=== PATIENT | female | born 1960 | race Caucasian/White ===

== ENCOUNTER 2019-02-08 13:43 | Inpatient (IN) | payer OTHER ==
[~2019-02-08] VITALS: Ht 162.6 cm; Wt 59.0 kg
[2019-02-08 13:44] VITALS: BP 147/105
[2019-02-08 14:11] LABS: HEMATOCRIT 40.3 % (37.0-47.0); HEMOGLOBIN 13.3 gm/dL (12.0-15.0); MCH 28.7 pg (26.0-34.0); MCHC 33.1 g/dL (28.0-37.0); MCV 86.8 fL (80.0-100.0); PLATELET COUNT 457 thou/uL (150-400); RBC 4.64 mil/uL (4.20-5.00); WBC 24.4 thou/uL (4.0-11.0)
[2019-02-08 14:14] LABS: ANION GAP 11 mmol/L (7-16); BUN 25 mg/dL (7-18); CALCIUM 9.6 mg/dL (8.5-10.1); CHLORIDE 105 mmol/L (98-107); CO2 29 mmol/L (21-32); CREATININE 0.7 mg/dL (0.6-1.0); GLUCOSE 166 mg/dL (74-106); POTASSIUM 3.8 mmol/L (3.5-5.1); SODIUM 145 mmol/L (136-145)
[2019-02-08 14:16] LABS: BE(vivo) 1.2 mmol/L (-2 to +3); HCO3 25.5 mmol/L (22.0-26.0); PCO2 39.5 mmHg (35.0-45.0); PO2 242.7 mmHg (80.0-100.0); pH 7.428 (7.360-7.450); sO2 99.6 % (92.0-98.0)
[2019-02-08 14:24] LABS: MAGNESIUM 2.4 mg/dL (1.8-2.4); SGOT 53 U/L (15-37); SGPT 98 U/L (30-65); TOTAL BILIRUBIN 0.4 mg/dL (<0.1-1.0); TOTAL PROTEIN 8.3 g/dL (6.4-8.2); TROPONIN-I <0.06 ng/mL (<0.06)
[2019-02-08 14:30] LABS: APTT 27.3 Seconds (24.5-32.8); D-DIMER 3.11 ug/mLFEU (0.19-0.50); INR 1.1
[2019-02-08] MEDS ORDERED: ROBITUSSIN15 M1 PO (14:32)
[2019-02-08] MEDS ORDERED: SERTRALINE HCL25 M1 PO (14:33)
[2019-02-08] MEDS ORDERED: RILUTEK50 MG PO (14:33)
[2019-02-08] MEDS ORDERED: GLYCOPYRROLATE 11 MG PO (14:34)
[2019-02-08 14:42] LABS: ABSOLUTE NEUTROPHILS 19.5 thou/uL (1.4-8.2)
--- NOTE | 2019-02-08 17:19 | EKG ---
[address] [address] ELECTROCARDIOGRAM REPORT Name: HEATHER MARTINES Room #: 170-10 ADM IN M.R.#: [id number] ������������������ Admission: 02/08/19 ������������������ Attend Phys: Tony Weems Discharge: ������������������ Date of : 56 Report #: [id number] ����������������������������������������������������������������� [id number] THIS REPORT FOR: //name// [facility] ED Test Date: 2019-02-08 Test Time: 13:51:56 Pat Name: HEATHER MARTINES Department: Room: 170 Gender: F Mds Rn: YOSELYN : 1960 Requested By: Santiago Valentin Order Number: [id number] MD: Bernabe Estrada Measurements Intervals [place] Rate: 115 P: 83 WY: 126 QRS: 55 QRSD: 93 T: 59 QT: 315 QTc: 436 Interpretive Statements Sinus tachycardia Otherwise normal tracing No previous ECG available for comparison Electronically Signed On 02-08-2019 17:18:52 CDT by Bernabe Estrada [email or web address] ��������������������������������������������� <ELECTRONICALLY SIGNED> ���������������������������������������� By: Bernabe Estrada MD, [facility] ��������������������������������������������� 02/08/19 1718 1351 1351 Bernabe Estrada MD, FACC /EPI
[2019-02-08 17:22] VITALS: BP 133/92
[2019-02-08 18:36] VITALS: BP 146/98
[2019-02-08 19:50] VITALS: BP 129/91
[2019-02-09 03:25] VITALS: BP 132/98
--- NOTE | 2019-02-09 04:45 | NUR ---
ADMISSION CAME AT SHIFT CHANGE. NO REPRESENATIVES FOR PT WERE PRESENT. DURING ADMISSION ASSESSMENT NOTICE PT HAD BRIEF ON WHICH WAS REMOVED. FROY AREA HAS REDNESS DUE TO URINE. PLACED EXTERNAL CATH, CLEANED FROY AREA, AND APPLIED BARRIER CREAM. MOVED PT ON Q2 BASIS. Q6 ACCU CHECK. PT HAS BEEN NPO SINCE ARRIVING. FOLLOWING POC FOR IVF AND IVPB ANTIBIOTICS. PT HAS BEEN ON BIPAP SINCE ARRIVAL, CONTINUOS PULSE OX, AND HAS HAD 02 SATURATION IN HIGH 90'S. HOURLY ROUNDING.
[2019-02-09 05:35] LABS: HEMATOCRIT 35.4 % (37.0-47.0); MCHC 31.9 g/dL (28.0-37.0); MCV 87.9 fL (80.0-100.0); RBC 4.02 mil/uL (4.20-5.00); RDW 14.3 % (10.5-14.5); WBC 23.7 thou/uL (4.0-11.0)
[2019-02-09 05:38] LABS: HEMOGLOBIN 11.3 gm/dL (12.0-15.0)
[2019-02-09 07:32] LABS: HCO3 27.3 mmol/L (22.0-26.0); PCO2 40.8 mmHg (35.0-45.0); pH 7.443 (7.360-7.450); sO2 96.3 % (92.0-98.0)
[2019-02-09 07:34] LABS: URINE BILIRUBIN NEGATIVE (Negative); URINE BLOOD 2+ (Negative); URINE COLOR YELLOW; URINE GLUCOSE-RANDOM* NEGATIVE (Negative); URINE KETONES NEGATIVE (Negative); URINE LEUKOCYTES-REFLEX NEGATIVE (Negative); URINE PROTEIN (DIPSTICK) 2+ (Negative); URINE SPECIFIC GRAVITY >= 1.030 (1.005-1.035); URINE UROBILINOGEN 0.2 E.U./dl (0.2-1.0)
[2019-02-09 07:35] VITALS: BP 150/99
[2019-02-09 07:35] LABS: URINE NITRITE-REFLEX POSITIVE (Negative)
[2019-02-09 07:36] LABS: URINE CLARITY SL HAZY
[2019-02-09 07:52] LABS: BACTERIA-REFLEX 1-9 Few /HPF (None Seen); CASTS None Seen /LPF (None Seen); CRYSTALS None Seen /LPF (None Seen); SQUAMOUS 0-3 Few /LPF (0-3); URINE WBC-REFLEX 0-5 Rare /HPF (0-5)
[2019-02-09 07:53] LABS: URINE RBC 0-2 Rare /HPF (0-2)
[2019-02-09 11:07] VITALS: BP 138/98
--- NOTE | 2019-02-09 14:42 | NUR ---
DR. RIVERA IN TO SEE PT AND TALKED W/ RE PROGNOSIS AND PLAN OF CARE. STATED HE HAD TALKED W/ THE [place] [facility] YESTERDAY RE HOSPICE CARE AND THEY WERE TO GET THAT SET UP AND CALL HIM. PT WILL CONTINUE TO RECIEVE IV ANTIBIOTICS AND BIPAP FOR NOW. TYLENOL SUPP GIVEN FOR FEVER 101.5 AXILARY. PT TURNED Q2HRS.
--- NOTE | 2019-02-09 15:23 | NUR ---
Case opened to follow for support and dc planning. Pt admitted with aspiration pneumonia and enstage ALS. She is from home with her who provides 24hr care. She is on bipap at this time. The pt is awake but unable to participate in conversation. Classroom Assistant visited with the pt's spouse. Classroom Assistant placed a copy of the pt's living will and financial dpoa on the chart along with an original outside the hospital DNR form. The pt had completed these documents several years ago. The pt's spouse reports that until a few weeks ago she was able to say a couple of words and nod her head to communicate. Her swallow was very weak and she could no longer tolerate solid foods. He was trying to feed her liquid supplements. He states that they are suppose to have 4hrs of private duty care through the [facility] based [facility]. She has a RN cm at the [facility], Raquel Claros. He reports talking with Raquel about hospice services yesterday but has not heard back from her. Message left for Raquel at [phone] ext [phone] regarding dc planning efforts. The pt's spouse indicates that he has talked with pulmonary and they will try to treat with iV atb/bipap for a few days to help her respiratory status with the hope of getting back home with hospice care. The pt is a DNR. The pt is 100% service connected through the [facility] and they are paying for her hospital stay. They cover her dme and provide the daily private duty and SOLUTION [employer] visits every couple of months. She has medicare part A only as a secondary. The pt has a hospital bed, lift, cpap and bipap at home. She will need home o2 setup along with hospice care. Emotional support provided. Will follow.
--- NOTE | 2019-02-09 15:28 | NUR ---
ORDERS RECEIVED TO ASSESS SWALLOW FUNCTION; HOWEVER PER REPORT FROM RN, LUBRICATING SPECIALIST AND FAMILY CONSIDERING HOSPICE SERVICES FOR PATIENT D/T ACUTE MEDICAL DECLINE. DOCKING SAW OPERATOR TO SIGN OFF AT THIS TIME. RN ENCOURAGED TO RECONSULT ST SERVICES SHOULD EVALUATION BECOME APPROPRIATE.
[2019-02-09 15:31] VITALS: BP 140/91
[2019-02-09 19:55] VITALS: BP 144/81
[2019-02-10 04:45] VITALS: BP 151/98
[2019-02-10 05:03] LABS: HEMATOCRIT 33.9 % (37.0-47.0); HEMOGLOBIN 10.8 gm/dL (12.0-15.0); MCHC 31.9 g/dL (28.0-37.0); RBC 3.85 mil/uL (4.20-5.00); RDW 14.1 % (10.5-14.5); WBC 17.5 thou/uL (4.0-11.0)
[2019-02-10 05:16] LABS: CALCIUM 9.2 mg/dL (8.5-10.1); CREATININE 0.5 mg/dL (0.6-1.0); POTASSIUM 3.5 mmol/L (3.5-5.1)
--- NOTE | 2019-02-10 06:30 | NUR ---
PT HAS NOT BEEN HAVING URINE OUTPUT AND RETAINING ON THE AVERAGE OF 500ml MULTIPLE OCCASIONS THROUGHOUT THE SHIFT. CALLED IN[facility]O [facility] AND RECEIVED ORDER TO INSERT PECK DUE TO COMPLEXITY OF STRAIGHT CATH AND ANATOMY ISSUES. FOLLOWING POC WITH IVF AND IVPB ANTIBIOTICS. Q2 TURNS FOR PT AND ACCU CHECKS ON Q6 BASIS. PT IS NON-VERBAL BUT CAN TRACK WITH HER EYES. PT STILL ON BIPAP, BUT SHE IS GRUNTING LIKE SHE IS WANTING TO COME OFF THE BIPAP. HOURLY ROUNDING.
[2019-02-10 07:19] VITALS: BP 152/96
[2019-02-10 11:15] VITALS: BP 153/93
--- NOTE | 2019-02-10 12:42 | NUR ---
Noted with pt with low sharla score. Chart reviewed, progressive ALS, not able to take po at this time. DNR status. Requires BIPAP. Comfort measures has been recommended with hospice. Defer further nutrition eval at this time
[2019-02-10 15:15] VITALS: BP 138/82
--- NOTE | 2019-02-10 16:42 | NUR ---
RAF received call from RAF at [facility], [place] ([phone]) regarding pt's discharge plan. [facility], who states that pt and spouse are able to choose any hospice provider they would like. The [facility] will cover hospice with their choice of provider. Pt has med mgmt services through [employer] . [place] requests hospice provider choice and discharge orders/summary to be faxed to them when available. RAF, Oct ([phone]) will be taking case tomorrow. RAF spoke with pt's spouse via phone to provide update and discuss discharge plan. Pt's spouse would like for pt to discharge home with hospice services. Options discussed with pt's spouse, who requests referral to be sent to Hospice. RAF discussed plan for d/c home and potentially to Hospice House if needed. Pt's spouse is agreeable with plan. paraplanner to fax referral to Hospice. RAF notified chemistry lab instructor, who will contact pt's spouse to arrange info visit/eval tomorrow. RAF updated attending physician. RAF is following to assist as needed with discharge planning.
--- NOTE | 2019-02-10 16:51 | NUR ---
DISCHARGE PLANNING. PLAN IS FOR PATIENT TO DISCHARGE HOME WITH HOSPICE SERVICES. [facility] AND [facility]OVERING PATIENTS HOSPICE NEEDS WELL. REFERRAL FAXED TO HOSPICE. CALL PLACED TO HOSPICE INTAKE, SPOKE WITH TAYLOR. TAYLOR INFORMED OF PATIENTS DISCHARGE PLAN. STATES SHE WILL REVIEW REFERRAL AND CONTACT CM IN THE AM ONCE REVIEW IS COMPLETE. CM CONTACT INFORMATION PROVIDED TO TAYLOR. UNIT CM/SW AWARE. FOLLOWING TO ASSIST WITH PATIENTS DISCHARGE NEEDS.
--- NOTE | 2019-02-10 18:40 | NUR ---
PT HAD PECK PLACED LAST NIGHT FOR RETENSION AND IMMOBILTY...NO BM SINCE ADMISSION..
--- NOTE | 2019-02-10 18:43 | HC ---
[facility] [place] [address] [address] CONSULTATION Name: HEATHER MARTINES Room #: 352-P [facility] IN M.R.#: [id number] Admission: 02/08/19 ������������������ Attend Phys: Tony Weems Discharge: ������������������ Date of : 56 Report #: [id number] THIS REPORT FOR: //name// CC: FAM unknown Tony Weems DATE OF SERVICE: 02/08/2019 PRIMARY PHYSICIAN: Dr. Weems. REASON FOR REFERRAL: Acute respiratory failure. HISTORY OF PRESENT ILLNESS: The patient is a 58-year-old white female who was brought to the Emergency Room with respiratory distress. A pulmonary consultation was requested. The patient is nonverbal. Most of the history is obtained from the patient's along with the chart. The patient was diagnosed with ALS several years ago. She has been getting her care primarily at the [facility]. The patient's has been the primary caregiver. She has been doing fairly well until about a month ago. Her health started deteriorating. She was noticeably much more weaker. She used to take up to 2 hours to eat her meals about a month ago. It was taking up to 4 hours to eat her meals. The patient's noted the patient is being more flaccid, weak. For the past 3 days, she is noted to be more dyspneic. With worsening symptoms, he brought her to the Emergency Room. The patient had been living at home up until this point. Currently, the patient is on BiPAP. She is tolerating fairly well. PAST MEDICAL HISTORY: As mentioned above. It is notable for ALS with progressive muscle weakness, atrophy, contractures. PAST SURGICAL HISTORY: Unremarkable. ALLERGIES: WELLBUTRIN, reactions not specified. HOME MEDICATIONS: Robitussin, riluzole, sertraline, glycopyrrolate. FAMILY HISTORY: Noncontributory. SOCIAL HISTORY: No tobacco or alcohol use. [facility] [address] [place] [address] CONSULTATION Name: HEATHER MARTINES Room #: 352-P [facility] IN M.R.#: [id number] Admission: 02/08/19 ������������������ Attend Phys: Tony Weems Discharge: ������������������ Date of : 56 Report #: [id number] REVIEW OF SYSTEMS: Progressive weakness, debility over the last several years, markedly worse over the past month. The patient's has been primary caregiver at home. REVIEW OF SYSTEMS: Deferred as the patient is nonverbal. PHYSICAL EXAMINATION: GENERAL: She is awake, eyes open, tolerating BiPAP. VITAL SIGNS: Temperature is 100.5 degrees Fahrenheit, pulse is 94, respiratory rate is 24, blood pressure 130/98 mmHg, saturation 98%. HEENT: Normocephalic, atraumatic. NECK: Supple, without lymphadenopathy or thyromegaly. CHEST: Breath sounds are fair due to poor effort. No obvious rales or wheezes. CARDIOVASCULAR: Normal S1, S2. No murmurs or gallop. There is no JVD. There is no carotid bruit. Pulses are 2+/4+ bilaterally. ABDOMEN: Soft, nontender, no organomegaly or masses felt. GENITOURINARY: Deferred. RECTAL: Deferred. EXTREMITIES: There is no cyanosis, clubbing or edema. MUSCULOSKELETAL: Notable for marked muscle atrophy with contractures both upper and lower extremities. LABORATORY DATA: Chest x-ray shows mild left lower lobe infiltrates changes consistent with pulmonary fibrosis, right lower lobe infiltrates also noted. Influenza A and B swab is negative. Procalcitonin level is 0.16. Electrolytes are normal. WBC is 24,400, hemoglobin 13.3, platelets are normal. Arterial blood gas revealed pH 7.42, pCO2 of 39, pO2 of 242 and FiO2 100%. IMPRESSION: 1. Acute hypoxic respiratory failure in this 58-year-old white female with long history of amyotrophic lateral sclerosis. She is profoundly debilitated with muscle weakness with contractures. Chest x-ray suggests mild bibasilar infiltrates. Pneumonia is suggested. 2. Amyotrophic lateral sclerosis with progressive muscle weakness, contractures. 3. Elevated liver enzymes, may be related to sepsis. 4. Medical directive. According to the , the patient desires to be DNR. RECOMMENDATION: Agree with noninvasive ventilation, broad spectrum antibiotics, DVT and GI prophylaxis. If clinical condition deteriorates and the patient appears to be suffering, would strongly recommend comfort measures with hospice. Discussed in detail with the patient's . [address] [address] CONSULTATION Name: HEATHER MARTINES Room #: 352-P ADM IN M.R.#: [id number] Admission: 02/08/19 ������������������ Attend Phys: Tony Weems Discharge: ������������������ Date of : 56 Report #: [id number] Thank you for this consultation. ��������������������������������������������� <ELECTRONICALLY SIGNED> ���������������������������������������� By: Easton Noriega MD ��������������������������������������������� 02/10/19 1843 1641 [id number] Easton Noriega MD /nt
[2019-02-10 19:00] VITALS: BP 133/85
[2019-02-11 04:12] VITALS: BP 145/81
--- NOTE | 2019-02-11 04:38 | NUR ---
ASSUMED PT CARE AROUND 1900. NONVERBAL BUT IS ABLE TO MAINTAIN EYE CONTACT. ON BIPAP ALL SHIFT. TOLERATED WELL. ORAL CARE PROVIDED. Q2H TURN TO PREVENT SKIN BREAKDOWN. PT WAS SLIGHTLY RESTLESS DURING MIDDLE OF THE NIGHT, SO MORPHINE GIVEN FOR APPARENT PAIN. VSS. AFEBRILE. PECK TO DD. NOT PROGRESSING WELL TOWARD POC GOALS. WILL CONTINUE TO MONITOR FURTHER.
[2019-02-11 05:12] LABS: CALCIUM 8.6 mg/dL (8.5-10.1); CREATININE 0.4 mg/dL (0.6-1.0); POTASSIUM 3.3 mmol/L (3.5-5.1)
[2019-02-11 07:38] VITALS: BP 147/87
[2019-02-11 12:03] VITALS: BP 143/70
--- NOTE | 2019-02-11 17:18 | NUR ---
RAF reviewed chart and spoke with nursing and attending physician. mate relief arranged to meet with pt's spouse at 1100 this morning. Attending physician met with pt's spouse and it was decided that pt remain hospitalized on comfort care measures. Pt started on morphine gtt. RAF received call from RAF Jean at the [facility] ( [phone]). RAF returned call and left voice message for Miranda and provided update. RAF is available to assist should needs arise.
--- NOTE | 2019-02-11 17:28 | NUR ---
ASSUMED PATIENT CARE AT 0700, AWAKE. STARTED MORPH GTT AT 1215 5MG /H. ON COMFORT CARE. TOLERATED ON BIPAP 35% FIO2. PATIENT'S MOTHER AND SISTER CAME TO VISITOR. Q2H TURN AND ORAL CARE. NO DISDRESS NOTED. SLOWLY TOWARDS POC GOALS.
[2019-02-11 20:00] VITALS: BP 104/67
[2019-02-12 04:20] VITALS: BP 78/46
--- NOTE | 2019-02-12 05:24 | NUR ---
SLEPT MOST OF SHIFT. APPEARS TO BE COMFORTABLE. OPENS EYES TO VERBAL STIMULI BUT REMAINS NO VERBAL. TOLERATING BIPAP BUT RESPIRATIONS 10 WITHOUT BIPAP. TURNED EVERY 2 HOURS FOR COMFORT AND SKIN CARE. REMAINS ON COMFORT CARE. BLOOD PRESSURE IN 70'S THIS AM. MESSAGE LEFT FOR ABOUT STATUS. NO RETURN CALL AT THIS TIME. CONTINUE TO ASSES CLOESLY.
[2019-02-12 07:41] VITALS: BP 84/51
--- NOTE | 2019-02-12 13:43 | NUR ---
ASSUMED PATIENT CARE AT 0700. UNRESPENSIVE, ON MORPHINE GTT. AND OTHER FAMILY NUMBER AT BESIDE. RECEVIED DR CAMACHO ORDER THAT TAKE OFF BIPAP AND INCREASE MORPHINE RADE AT 1230. GIVEN 2MG ATIVAN IV AT 1340. WILL SCAN WHEN POWER BACK.
[2019-02-12 20:00] VITALS: BP 88/59
--- NOTE | 2019-02-13 05:23 | NUR ---
ASSUMED PATIENT CARE AT 1900. PATIENT IS UNRESPONSIVE AND ON A MORPHINE GTT. AND DBVWUY-OF-CZR AT BEDSIDE. ATIVAN GIVEN AND MORPHINE RATE INCREASED FOR AIR HUNGER. PATIENT IS COMFORTABLE.
[2019-02-13 11:31] VITALS: BP 77/48
--- NOTE | 2019-02-13 15:40 | NUR ---
PT RESTING IN BED OPENS EYES BUT IS NON-VERBAL. LUNGS COARSE. BS'S ALL 4 QUADS. PECK CATH TO D/D. DARK YELLOW URINE IN PECK BAG. HAS EDEMA PITTING 3+ TO ADRIEN LE'S. PT IS COMFORT CARE.HAS MORPHINE DRIP FOR PAIN. AT BEDSIDE.
[2019-02-13 16:52] VITALS: BP 104/63
[2019-02-13 22:21] VITALS: BP 104/63
--- NOTE | 2019-02-14 02:37 | NUR ---
PT IN COMFORT CARE AND TELE HAS BEEN REMOVED. MORPHINE DRIP INFUSING. PT IS UNRESPONSIVE VOCALY, BUT CAN TRACK WITH EYES. IS ROOMING IN. PECK IN PLACE FOR COMFORT MEASURES. BREATH SOUNDS ARE COURSE WITH FAINT GRUNTS BEING HEARD. BLLE AND BLUE. EXTREMETIES ELEVATED. HOURLY ROUNDING.
[2019-02-14 03:28] VITALS: BP 89/58
--- NOTE | 2019-02-14 12:14 | NUR ---
PT ON COMFORT CARE. PT UNRESPONSIVE. PT DOES NOT APPEAR TO BE IN ANY PAIN, MORPHINE GTT INFUSING PER ORDER. 2L ON 02 SATS 61%. AT BEDSIDE. WILL CONTINUE TO MONITOR.
== END 2019-02-14 12:23 | DRG 177 ==
LOC: ER 13:43 → EROBS 14:52 → 3W 14:52
PROVIDERS: Emergency Medicine; Internal Medicine Pulmonary Disease; Nurse Practitioner; Nurse Practitioner Family; ADMIT Hospitalist
PROC: 5A09357 Assistance with Respiratory Ventilation, Less than 24 Consecutive Hours, Continuous Positive Airway Pressure (ICD-10-PCS; principal; 2019-02-08)
PROC: 5A09357 Assistance with Respiratory Ventilation, Less than 24 Consecutive Hours, Continuous Positive Airway Pressure (ICD-10-PCS; 2019-02-09)
PROC: 5A09357 Assistance with Respiratory Ventilation, Less than 24 Consecutive Hours, Continuous Positive Airway Pressure (ICD-10-PCS; 2019-02-10)
PROC: 5A09357 Assistance with Respiratory Ventilation, Less than 24 Consecutive Hours, Continuous Positive Airway Pressure (ICD-10-PCS; 2019-02-11)
PROC: 5A09357 Assistance with Respiratory Ventilation, Less than 24 Consecutive Hours, Continuous Positive Airway Pressure (ICD-10-PCS; 2019-02-12)
DX: J69.0 Pneumonitis due to inhalation of food and vomit (principal); J96.21 Acute and chronic respiratory failure with hypoxia; G92 Toxic encephalopathy; G12.21 Amyotrophic lateral sclerosis; J98.11 Atelectasis; Z66 Do not resuscitate; G35 Multiple sclerosis; F32.9 Major depressive disorder, single episode, unspecified; R73.9 Hyperglycemia, unspecified; Z74.01 Bed confinement status; Z79.899 Other long term (current) drug therapy; Z88.8 Allergy status to other drugs, medicaments and biological substances
CPT/HCPCS: 10080; 10879